=== PATIENT | female | born 1990 | race Caucasian/White ===

== ENCOUNTER → 2021-09-24 16:18 | Outpatient (CLI) | payer MEDICARE, MEDICAID, SELFPAY ==
[2021-09-24 17:50] LABS: Alanine Aminotransferase 11 IU/L (<35); Albumin 3.7 g/dL (3.5-5.0); Albumin Globulin Ratio 1.2 (1.0-2.8); Alkaline Phosphatase 79 U/L (38-126); Aspartate Aminotransferase 21 IU/L (14-36); Bilirubin Total 0.4 mg/dL (0.2-1.3); Blood Urea Nitrogen 9 mg/dL (7-17); Calcium 8.6 mg/dL (8.4-10.2); Carbon Dioxide 31 mmol/L (22-32); Chloride 105 mmol/L (98-107); Estimated Glomerular Filt Rate > 60 mL/min (>60); Globulin 3.2 g/dL (1.7-4.1); Glucose 82 mg/dL (70-100); HEMOLYSIS 29 (0-50); Lipase 215 U/L (23-300); Potassium 4.6 mmol/L (3.4-5.1); Sodium 140 mmol/L (137-145); Total Protein 6.9 g/dL (6.3-8.2)
== END ==
PROVIDERS: PCP Nurse Practitioner Family; Referring Provider Surgery; Visit Provider Surgery
DX: K85.10 Biliary acute pancreatitis without necrosis or infection (principal)
CPT/HCPCS: 36415; 80053; 83690; 99213

== ENCOUNTER 2021-11-11 11:16 | Day surgery (SDC) | payer MEDICARE, MEDICAID, SELFPAY ==
[2021-11-04 13:43] VITALS: BMI 50.3
[2021-11-09 18:32] VITALS: BP 116/80; PULSE 102; RESP 16; TEMP 35.6; O2SAT 98
[2021-11-11] VITALS (13 sets, daily range): BP systolic 105–172; BP diastolic 56–99; PULSE 82–106; RESP 11–23; TEMP 35.9–36.6; O2SAT 93–97; BMI 50.3
--- NOTE | 2021-11-11 | PATH_ITS ---
[facility] Accession Number: [id number] . 01 Material submitted: . gallbladder - GALLBLADDER . 01 Clinical history: . LAP ARTURO CALCULUS OF GALLBLADDER WITHOUT CHOLECYSTITIS . 01 Diagnosis: Gallbladder, Cholecystectomy: Cholelithiasis with chronic cholecystitis. No evidence of neoplasm. MRV 11/13/2021 1256 Local . 01 Electronically signed: . Quang Sin MD, PhD, Pathologist NPI- [id number] . 01 Gross description: . The specimen is received in formalin labeled with the patient's name and gallbladder, and consists of an intact gallbladder measuring 7.4 x 2.8 x 2.8 cm with bolaños roughened serosa and a rough and unremarkable hepatic surface. A full thickness defect is identified within the serosa measuring 0.1 cm in greatest dimension. The presumed cystic duct is received patent and is inked blue with no pericystic lymph node identified. Opening the specimen reveals the lumen to be filled with numerous dark brown faceted calculi measuring up to 2.5 cm in greatest dimension obstructing the cystic duct. The mucosa is bolaños, denuded, and trabecular with no areas of discoloration, polyps, or lesions identified. The miles average 0.3 cm thick. Manager Of Corporate sections to include the cystic duct margin and full thickness sections are submitted in cassette A1. ([id number]) /MICHELLE 11/12/20212021 Local . 01 Pathologist provided ICD-10: K80.60, K81.1 . 01 CPT . 625998 Performed at: 01 [facility] [address] [place] [address] Suite [facility], [place], [place] [id number] MD Jorge Davis MD Phone: [phone]
[2021-11-11] MEDS: LACTATED RINGERS 1,000 ML 42 ML IV ×2 (12:12→15:00)
[2021-11-11] MEDS: SCOPOLAMINE 1 PATCH TOP (12:34)
[2021-11-11] MEDS: ACETAMINOPHEN 325 MG TABLET 975 MG PO (12:36)
--- NOTE | 2021-11-11 12:41 | PM.HP.1 ---
History of Present Illness History of Present Illness Date Patient Seen: 11/11/21 Time Patient Seen: 12:41 Chief complaint: Lap Nelia Narrative: Aniya is here for her laparoscopic cholecystectomy. Please refer to the office note September for details. There have been no significant changes interim. Patient History Medical History (Updated 11/04/21 @ 13:47 by Amanda Simons RN) Anxiety Mentally disabled Morbidly obese Family & Social History Family History Grandfather Hypertension Heart disease Mother Heart disease Gallstones Diabetes mellitus Breast cancer Family/Other Gallstones Breast cancer Diabetes mellitus Father Diabetes mellitus Social History: household members family lives independently Yes Tobacco & Substance use: Smoking Status Former smoker alcohol intake never Substance Use Type does not use Meds Home Medications and Allergies Home Medications Medication Instructions Recorded Confirmed Type Ativan 0.5 mg PO PRN PRN Anxiety 11/11/21 11/11/21 History diphenhydramine HCl 50 mg capsule 50 mg PO BEDTIME 11/11/21 11/11/21 History Allergies Allergy/AdvReac Type Severity Reaction Status Date / Time erythromycin base Allergy Verified 11/11/21 12:00 Exam Vital Signs (past 8 hours): - 11/11/21 12:12 Temperature 97.1 F L Pulse Rate 88 Respiratory Rate 16 Blood Pressure 137/87 Pulse Oximetry 96 Oxygen Delivery Method Room Air Oxygen Delivery Method Room Air Const Nutritional Appearance: obese Resp Effort & Inspection: normal respiratory effort Assessment & Plan Assessment and plan (1) Gallstone pancreatitis: Status: Acute Plan I discussed the risks and benefits of surgery with her and her sister and they would like to proceed. Time Spent With Patient Critical Care time: I spent a total of [] minutes of critical care time on this patient's care today; this time is exclusive of procedural time.
[2021-11-11] MEDS: CEFAZOLIN VIAL 1 GM in SODIUM CHLORIDE 0.9% 100 ML IV (13:17)
[2021-11-11] MEDS: CEFAZOLIN 2 GM/100 ML PREMIX 100 ML IV (13:17)
[2021-11-11] MEDS: BUPIVACAINE 0.5% W/ EPI (PF) 30 ML VIAL INJ (13:35)
--- NOTE | 2021-11-11 13:50 | SUR.OPER ---
Supine on padded OR bed, head on pillow and wedge foam per anesthesia, arms secured on padded arm boards resting on pillows for support at <90 degrees abduction, legs uncrossed, safety belt at thigh and lower legs, tape over blanket over lower legs. Gel pad under heels. Patients legs naturally rest bent at knees and abduction. Bed extension placed on patient left side for support.
--- NOTE | 2021-11-11 14:05 | SUR.OPER ---
Patients glasses brought with patient to OR then to PACU.
[2021-11-11] MEDS: IOPAMIDOL 50 ML VIAL INJ (14:33)
--- NOTE | 2021-11-11 14:46 | DI.RAD.S_ITS ---
PROCEDURE: XR CHOLANGIOGRAM OPERATIVE INDICATIONS: CHOLECYSTITIS COMPARISON: None. FINDINGS: Biliary ducts: The surgeon injected contrast into the biliary ducts after cannulation of the cystic duct stump. Visualized intra- and extrahepatic bile ducts are normal in caliber, without strictures. No intraluminal filling defects to suggest retained ductal stones or sludge. No evidence for iatrogenic ductal injury. Duodenum: Contrast flows promptly through the sphincter of Oddi into the duodenum, which appears normal in caliber. IMPRESSION: Normal operative cholangiogram. Dictated by: Connor ALLRED Interpreted: Michael Rodriguez MD on 11/11/2021 at 16:27 Transcribed by: KAY on 11/11/2021 at 16:27 Approved by: Michael Rodriguez M.D. on 11/11/2021 at 18:28
[2021-11-11] MEDS: SODIUM CHLORIDE 0.9% 100 ML INJ (15:12)
--- NOTE | 2021-11-11 15:37 | P.OP_ITS ---
Operative Date/Time/Diagnoses Date of procedure: 11/11/21 Time of procedure: 15:44 Pre-op diagnosis: Gallstones Post-op diagnosis: same Procedure & Clinicians Procedure: Laparoscopic cholecystectomy with intraoperative cholangiogram Same procedure as scheduled: Yes Surgeon: Srinath Lynne Anesthesia Type: General Operative Notes Procedure in detail: The patient was given preoperative antibiotic. The patient was brought to the operating room, placed on the table in the supine position. General endotracheal anesthesia was induced. The abdomen was prepped and draped. A time-out was performed. We made a 2 cm supraumbilical incision. We dissected down to the anterior sheath and scored the anterior sheath with cautery vertically over 1 cm. We placed 0 Vicryl stay sutures into the fascia. We pierced the peritoneum with a Peon clamp. The Ilia port was placed and the abdomen was insufflated to 15 mmHg. A 5 mm 30 degree laparoscopic was inserted. There was no evidence of any injury from the entry. Next, we placed 5 mm ports in the subxiphoid position and right upper quadrant at the midclavicular line and anterior axillary line. Patient was then positioned in reverse Trendelenburg. There were significant adhesions of omentum to the gallbladder w hich were taken down under direct vision with cautery. There were a few large stones in the gallbladder making it difficult to grasp however using a large toothed grasper we were able to get a technical illustrations map inker on the gallbladder at the dome and retracted cephalad. A one point the grasper did release from the gallbladder and made a small tract wound through the periphery of the liver. There was no significant bleeding or bile leakage noted. We then dissected the cystic structures with a combination of hook cautery and blunt dissection. There is intense fibrosis in the cystic triangle which obliterated all of the tissue planes. Eventually we were able to isolate the cystic duct and a cholangiogram was performed using the 6 Divehi ureteral catheter. There was good flow of contrast into the duodenum and up to the hepatic bifurcation with no obvious filling defects. The cystic duct common duct junction was well visualized. We then placed hemoclips on the cystic duct and artery and divided the cystic duct and artery sharply between the clips. The gallbladder was then dissected off the liver and placed in a specimen retrieval bag. We irrigated the right upper quadrant and all the aspirate returned clear. We placed a 15 round Chaz drain into the gallbladder fossa and brought it out through the lateral port site. The drain was secured to the skin with a nylon stitch. We then removed the remaining 5 mm ports under direct vision we removed the Ilia port. We then injected some local into the fascia and closed the fascia with 4 interrupted 0 Vicryl sutures. The skin incisions were closed with 4 Monocryl and Steri-Strips were applied. Band-Aids were applied over the Steri-Strips. Dissection was made exceptionally difficult by the intense fibrotic reaction around the cystic structures as well as the patient's BMI of 51 warranting a modifier 22 for the procedure. The patient will be admitted for observation overnight. EBL: 80 mL Specimen: Gallbladder Post-operative Condition: stable Disposition: PACU
[2021-11-11] MEDS: ONDANSETRON 4 MG/2 ML INJ IV (16:05)
[2021-11-11] MEDS: HYDROMORPHONE 2 MG INJ IV (16:05)
--- NOTE | 2021-11-11 16:08 | SUR.PHASEI ---
Patient c/o abdominal pain; medicated for pain and nausea; vss; maintaining oxygen saturation at 95% on 3 liters. No distress noted.
[2021-11-11] MEDS: LACTATED RINGERS 1,000 ML 100 ML IV (17:06)
[2021-11-11] MEDS: IBUPROFEN 600 MG TABLET PO (18:51)
[2021-11-12 03:47] VITALS: BP 129/65; PULSE 89; RESP 18; TEMP 36.6; O2SAT 95
[2021-11-12 06:33] LABS: Alanine Aminotransferase 24 IU/L (<35); Albumin 3.4 g/dL (3.5-5.0); Alkaline Phosphatase 69 U/L (38-126); Aspartate Aminotransferase 35 IU/L (14-36); BUN Creatinine Ratio 16.7 (6-22); Bilirubin Total 0.3 mg/dL (0.2-1.3); Blood Urea Nitrogen 11 mg/dL (7-17); Calcium 8.1 mg/dL (8.4-10.2); Carbon Dioxide 28 mmol/L (22-32); Chloride 103 mmol/L (98-107); Estimated Glomerular Filt Rate > 60 mL/min (>60); Globulin 3.5 g/dL (1.7-4.1); Glucose 136 mg/dL (70-100); HEMOLYSIS < 15 (0-50); Potassium 4.3 mmol/L (3.4-5.1); Sodium 138 mmol/L (137-145); Total Protein 6.9 g/dL (6.3-8.2)
[2021-11-12 06:39] LABS: Add Manual Diff / Slide Review NO; Basophils Absolute Auto 0 /uL (0-100); Basophils Percent Auto 0.1 % (0-2); Eosinophils Absolute Auto 0 /uL (0-450); Eosinophils Percent Auto 0.1 % (2-4); Hematocrit 32.4 % (36-46); Hemoglobin 10.5 g/dL (12.0-16.0); Lymphocytes Absolute Auto 600 /uL (1100-4500); Lymphocytes Percent Auto 4.9 % (25-40); Mean Corpuscular HGB Conc 32.5 % (30-36); Mean Corpuscular Volume 76.9 fL (80-100); Monocytes Absolute Auto 600 /uL (0-900); Monocytes Percent Auto 5.4 % (3-14); Neutrophils Absolute Auto 10600 /uL (1500-7000); Neutrophils Percent Auto 89.5 % (50-75); Platelet Count 190 X10^3/uL (150-400); Red Blood Cell Count 4.21 X10^6/uL (4.0-5.2); Red Cell Distribution Width 16.1 % (11.6-14.8); White Blood Cell Count 11.8 X10^3/uL (4.5-11.0)
[2021-11-12 08:10] VITALS: BP 110/56; PULSE 75; RESP 18; TEMP 36.2; O2SAT 93
--- NOTE | 2021-11-12 11:11 | CM.DANOTE ---
Patient is a 31 yo female who was admitted on 11/11/21 for scheduled Lap Nelia. Pt has MCR and BRAULIO for insurance and her PCP is Yuridia Mari. EMR was reviewed. Per Surgeon, pt tolerated procedure well and now medically stable to d/c home today with outpt f/u. Per RN, sister has been bedside and is pt's primary CG at home with her and family and pt has cognitive delay and functions around a 5-6 yo mentation and answers mostly with one word answers. Pt tolerating diet and ambulating and sister plans to provide transport home today and continue with her assist and care and no concerns at this time. Pt ambulates independently but needs assist with ADL's like meal prep and meds and chores. Plan: Patient to d/c home via sister POV today and outpt f/u and no SW needs at this time, please refer if indicated. JOSTIN Garcia Discharge Planning/Care Management Advanced directive, confirm from FAMILY Start: 11/11/21 18:14 Freq: Q24H Status: Active Protocol: Document 11/11/21 18:14 CM (Rec: 11/11/21 18:20 CM [id number]) Advance Directive, confirm on record Time 18:20 Person contacted Pt's sister Copy received No Advanced directive available on record No CM Discharge Assessment Start: 11/12/21 11:08 Freq: Status: Active Protocol: Document 11/12/21 11:09 BF (Rec: 11/12/21 11:10 BF [id number]) Discharge Planning Assessment Assigned Apparel Manager JOSTIN Anderson DPOA/Assigned Designee Name sister Pamela Advance Directives? No Advance Directives on File No History Provided By Family Member,Medical Record Has Patient been admitted in last 30 No days? Prior Living Arrangements Apartment/Condo Household Members family Type of transporation used prior to Relies on Others admit Independent with ADL's No Is patient alert and oriented? No: has delay, 5-6 yo cognition Needs Assistance With Meal Prep,Managing Medications ,Home Chores / Shopping Caregiver for Another No Barriers to Discharge No Discharge Plan Home Transportation Arrangement Sister bedside and will transport at d/c Referrals Initiated None needed Whiteboard Updated in Patient Room with Yes name and ext. # of Apparel Manager Review Status In Process Please Provide Date Initial DC 11/12/21 Assessment Was Performed Next Review Type Continued Stay Review Pre-Anesthesia Assessment Start: 11/04/21 13:43 Freq: Status: Complete Protocol: Document 11/04/21 13:43 CAB (Rec: 11/04/21 13:49 CAB [id number]) Pre-Anesthesia Assessment Patient Information Reviewed Via Chart Review Comment COVID screen @ 11/10/21 Primary Care Provider Yuridia Mari Seen Specialist in Last 12 Months Yes Specialist Seen General surgeon Primary Language Urdu Inseamer Required No Height 167.64 cm Weight 141.521 kg Body Mass Index (BMI) 50.3 Barriers to Learning Developmental delay Anesthesia Review Requested No Scow Hand No alcohol intake never Smoking Status Former smoker Patient is completely paralyzed or No completely immobile Is patient on oxygen? No Currently Taking a Beta Karolina No Anti-Coagulant Therapy No Has a Accreditation Coordinator No Cardiac Testing No Hx Pacemaker/ICD No Pacemaker Rep Required? No Urinary Catheter Present No Hx Urinary Self Catheterization No Patient No Lactating No Marital Status Single Lives With family Patient Discharge Plan Description Return Home
--- NOTE | 2021-11-12 11:43 | PC.NURSE ---
Discharge: Pt feels ready to d/c to home. has been voiding w/out problems. Diet tolerated with out problems. No use of pain med this am, says she doesn't need any for now. MD here and drain was removed intact by physician. Bandaid applied. D/c instructions were given to pt and sister. Both were shown how to change the dressing. They feel comfortable doing this at home and a days dressing supplies were given until the sister can pick some up. Reviewed d/c packet. rx has been esent. Questions answered. Pt d/c to home via auto with sister.
== END 2021-11-12 11:10 | disposition home or self-care (01) ==
LOC: OR 11:18 → AC 15:41
PROVIDERS: PCP Nurse Practitioner Family; Referring Provider Surgery; Visit Provider Surgery
PROC: 0FT44ZZ Resection of Gallbladder, Percutaneous Endoscopic Approach (ICD-10-PCS; CPT 47562; principal; 2021-11-11 13:00)
DX: K80.10 Calculus of gallbladder with chronic cholecystitis without obstruction (principal); D64.9 Anemia, unspecified; E66.01 Morbid (severe) obesity due to excess calories; Z68.43 Body mass index [BMI] 50.0-59.9, adult
CPT/HCPCS: 47563; 36415; 74300; 80053; 81025; 85025; J0330; J0690; J1100; J1170; J2250; J2405; J2704; J3010